=== PATIENT | female | born 1965 | race Caucasian/White ===

== ENCOUNTER 2020-09-23 15:04 | Emergency (ER) | payer OTHER ==
[~2020-09-23] VITALS: Ht 182.9 cm; Wt 105.0 kg
[2020-09-23] MEDS ORDERED: METH54TA5 (15:19)
[2020-09-23] MEDS ORDERED: ROPI1TAB3 (15:19)
[2020-09-23] MEDS ORDERED: BUPR150T12 (15:19)
[2020-09-23] MEDS ORDERED: ARIP1TAB (15:19)
[2020-09-23] MEDS ORDERED: TOPI25TA10 (15:19)
[2020-09-23] MEDS ORDERED: CLON0.5T2 (15:19)
[2020-09-23] MEDS ORDERED: PROMETHAZINE INJ 25 MG/ML VIAL (J2550) IM ONE (16:35)
[2020-09-23] MEDS ORDERED: ACETAMINOPHEN 500 MG TAB PO ONE (16:35)
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
[2020-09-23] MEDS ORDERED: ISOVUE-370 76% 100ML VIAL As Ordered ONE (17:50)
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
[2020-09-23] MEDS ORDERED: PERCOCET 5MG/325MG TAB PO ONE (18:25)
--- NOTE | 2020-09-23 19:09 | REPVR ---
PROCEDURE INFORMATION: Exam: CT Angiography Neck With Contrast Exam date and time: 09/23/2020 5:48 PM Age: 55 years old Clinical indication: Condition or disease; Aneurysm, cerebral; Additional info: ? Aneurysm on noncontrast TECHNIQUE: Imaging protocol: Computed tomography angiography of the neck with contrast. 3D rendering (Not supervised by radiologist): MIP and/or 3D reconstructed images were created by the technologist. Radiation optimization: All CT scans at this facility use at least one of these dose optimization techniques: automated exposure control; mA and/or kV adjustment per patient size (includes targeted exams where dose is matched to clinical indication); or iterative reconstruction. Contrast material: ISOVUE 370; Contrast volume: 100 ml; Contrast route: INTRAVENOUS (IV); COMPARISON: CT Spine,cervical w/o contrast 09/23/2020 5:07 PM FINDINGS: Right common carotid artery: No stenosis. No dissection or occlusion. Right internal carotid artery: No stenosis of the extracranial segment. No dissection or occlusion. Right external carotid artery: No occlusion or stenosis of the origin. Right vertebral artery: No stenosis. No dissection or occlusion. Left common carotid artery: No stenosis. No dissection or occlusion. There is a tiny indentation at the base of the carotid bulb posterior margin which could be due to minimal web. Left internal carotid artery: No stenosis of the extracranial segment. No dissection or occlusion. Left external carotid artery: No occlusion or stenosis of the origin. Left vertebral artery: No stenosis. No dissection or occlusion. Thyroid/parathyroid: There is a 1.3 x 1.1 x 0.8 cm lesion with rim enhancement and hypodense center along the posteromedial margin the left lobe of the thyroid gland. Series 507, images 37 -41, series 508 images 25, 26. This could represent a parathyroid tumor or a lymph node among other etiologies. There is mild heterogeneity of the thyroid gland. Bones/joints: No acute fracture. Soft tissues: Normal. No significant soft tissue swelling. IMPRESSION: 1. No carotid stenoses. 2. There is a 1.3 x 1.1 x 0.8 cm lesion along the posteromedial margin of the left lobe of the thyroid gland which could represent a parathyroid tumor among other etiologies. COMMENTS: Consistent with the [employer]'s Incidental Findings Committee white paper (J Am Torrey Radiol 2015): In patients aged 35 years and older with an incidental thyroid nodule equal to or greater than 1.[address], MRI or extrathyroidal US, further evaluation with dedicated thyroid US is recommended for patients with normal life expectancy and without comorbidities. For smaller nodules without suspicious features, no further evaluation or follow up is recommended. REFERENCES: NASCET CRITERIA. The degree of internal carotid artery stenosis is based on NASCET criteria. Normal is no stenosis. Mild is less than 50% stenosis. Moderate is 50-69% stenosis. Severe is 70% to 99% stenosis. Total occlusion is no detectable patent lumen. Electronically signed by: Margaret Wayne On 09/23/2020 19:09:32 PM
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
[2020-09-23] MEDS ORDERED: KETO10TAB PO (20:17)
[2020-09-23 21:05] VITALS: BP 136/87
[2020-09-24] MEDS ORDERED: ZOFR4TAB16 PO (12:10)
== END 2020-09-23 21:08 | disposition home or self-care (01) ==
LOC: M ED 15:04 → EDBD 15:04 → M ED 21:08
DX: S06.0X0A Concussion without loss of consciousness, initial encounter (principal); S16.1XXA Strain of muscle, fascia and tendon at neck level, initial encounter; R22.1 Localized swelling, mass and lump, neck; V43.52XA Car driver injured in collision with other type car in traffic accident, initial encounter; Y92.9 Unspecified place or not applicable; Y93.9 Activity, unspecified; Y99.9 Unspecified external cause status; F41.9 Anxiety disorder, unspecified; F32.9 Major depressive disorder, single episode, unspecified; I65.22 Occlusion and stenosis of left carotid artery; M51.36 Other intervertebral disc degeneration, lumbar region; M25.78 Osteophyte, vertebrae; Z88.0 Allergy status to penicillin; Z88.1 Allergy status to other antibiotic agents
CPT/HCPCS: 70450; 70496; 70498; 72110; 72125; 80047; 96372; 99284; Q9967

== ENCOUNTER → 2020-09-30 | Outpatient (REF) | payer OTHER ==
[~2020-09-30] MED LIST: ARIP1TAB; BUPR150T12; CLON0.5T2; KETO10TAB PO; METH54TA5; ROPI1TAB3; TOPI25TA10; ZOFR4TAB16 PO
[2020-09-30 15:06] LABS: BASO # 0.1 10^3/uL (0.0-0.2); BASO % 0.7 % (0.0-1.0); HEMATOCRIT 43.8 % (36.0-47.0); HEMOGLOBIN 14.6 g/dl (12.0-15.5); LYMPH # 2.5 10^3/uL (1.5-5.0); LYMPH % 34.1 % (24.0-44.0); MEAN CORPUSCULAR HEMOGLOBIN 29.9 pg (27.0-33.0); MEAN CORPUSCULAR HGB CONC 33.3 g/dl (32.0-36.5); MEAN CORPUSCULAR VOLUME 89.8 fl (80.0-96.0); MONO # 0.4 10^3/uL (0.0-0.8); MONO % 5.3 % (2.0-8.0); NEUTROPHILS # 4.3 10^3/uL (1.5-8.5); NEUTROPHILS % 59.6 % (36.0-66.0); PLATELET COUNT, AUTOMATED 273 10^3/uL (150-450); RED BLOOD COUNT 4.88 10^6/uL (4.00-5.40); WHITE BLOOD COUNT 7.2 10^3/uL (4.0-10.0)
[2020-09-30 15:10] LABS: APPEARANCE, URINE CLEAR (CLEAR); BACTERIA, URINE AUTO NEGATIVE (NEGATIVE); BILIRUBIN, URINE AUTO NEGATIVE (NEGATIVE); BLOOD, URINE BLOOD NEGATIVE (NEGATIVE); COLOR, URINE STRAW (YELLOW); GLUCOSE, URINE (UA) AUTO NEGATIVE (NEGATIVE); KETONE, URINE AUTO NEGATIVE (NEGATIVE); LEUKOCYTE ESTERASE, URINE AUTO NEGATIVE (NEGATIVE); NITRITE, URINE AUTO NEGATIVE (NEGATIVE); PROTEIN, URINE AUTO NEGATIVE (NEGATIVE); RBC, URINE AUTO 0 /HPF (0-3); SPECIFIC GRAVITY URINE AUTO 1.008 (1.002-1.035); SQUAMOUS EPITHELIAL CELL UR AU 0 /HPF (0-6); UROBILINOGEN, URINE AUTO 0.2 mg/dL (0.0-2.0); WBC, URINE AUTO 0 /HPF (0-3)
[2020-09-30 15:22] LABS: ALBUMIN 4.3 GM/DL (3.2-5.2); BILIRUBIN,TOTAL 0.4 MG/DL (0.2-1.0); CALCIUM LEVEL 9.6 MG/DL (8.5-10.1); CREATININE FOR GFR 1.02 MG/DL (0.55-1.30); FREE T4 1.17 NG/DL (0.76-1.46); GLOMERULAR FILTRATION RATE 59.9 (>51); POTASSIUM SERUM 4.5 MEQ/L (3.5-5.1); THYROID STIMULATING HORMONE 3.28 uIU/ML (0.358-3.740); TOTAL PROTEIN 7.6 GM/DL (6.4-8.2)
== END ==
LOC: M SFHCADAM 11:59
PROVIDERS: ATTEND Physician Assistant Medical
DX: R42 Dizziness and giddiness (principal); R03.0 Elevated blood-pressure reading, without diagnosis of hypertension; R39.89 Other symptoms and signs involving the genitourinary system

== ENCOUNTER → 2020-10-11 | Outpatient (CLI) | payer MEDICARE ==
--- NOTE | 2020-10-11 16:52 | REP ---
INDICATION: NON TOXIC GOITER COMPARISON: None. TECHNIQUE: Escobar scale and color evaluation of the thyroid gland using the linear high frequency transducer. FINDINGS: Thyroid gland is mildly enlarged with normal contour. Right lobe measures 4.7 x 1.7 x 1.5 cm and includes 9 x 7 x 10 mm isoechoic midpole nodule, 8 x 6 x 8 mm and 10 x 4 x 6 mm isoechoic mid/lower pole nodules. Isthmus measures 1.9 mm in width. Left lobe measures 5.0 x 1.7 x 1.7 cm and includes 8 x 5 x 5 mm isoechoic lower pole nodule and 4 x 3 x 5 mm hypoechoic midpole nodule. IMPRESSION: Nonspecific indeterminate bilateral nodules all of which measure up to 10 mm maximal diameter. <Electronically signed by Yogi Bauman > 10/11/20 0653
== END ==
LOC: M RAD 15:42
PROVIDERS: ATTEND Otolaryngology
DX: E04.2 Nontoxic multinodular goiter (principal)

== ENCOUNTER → 2020-10-20 | Outpatient (CLI) | payer MEDICARE ==
[~2020-10-20] MED LIST changes: -ARIP1TAB; +ARIP1TAB PO; -BUPR150T12; +BUPR150T12 PO; -CLON0.5T2; +CLON0.5T2 PO; +FLON1SPR NARES; +LEVOTAB10 PO; +LIDOCAINE 1% MDV 20ML VIAL As Ordered ONE; -METH54TA5; +METH54TA5 PO; +ONDANSETRON 4 MG TAB PO ONE; -ROPI1TAB3; +ROPI1TAB3 PO; -TOPI25TA10; +TOPI25TA10 PO
[2020-10-20 13:45] VITALS: BP 128/90
--- NOTE | 2020-10-20 16:41 | REP ---
INDICATION: LT THYROID NODULE E04.1. COMPARISON: None. TECHNIQUE: The procedure was performed under the direct supervision of Dr. Escobar. The patient has a history of a 1.3 x 1.1 x 0.8 cm lesion along the posteromedial margin of the left lobe of the thyroid seen on a previous CT scan dated 09/23/2020. The risks and benefits of the procedure were explained to the patient and informed consent was obtained. The left thyroid nodule was localized using ultrasound guidance. The skin was prepped and draped in a sterile fashion. 1% lidocaine was used as a local anesthetic. Using ultrasound guidance 4 fine-needle aspirations were obtained using 25 gauge needles. The patient tolerated the procedure well and there were no immediate complications. After the appropriate amount to monitor convalescence the patient was discharged from the department. FINDINGS: None IMPRESSION: Ultrasound-guided left thyroid biopsy. <Electronically signed by Johny Art > 10/20/20 1527 <Electronically signed by Joshua Escobar > 10/20/20 [id number]
== END ==
LOC: M IRPRO 12:23
PROVIDERS: ATTEND Otolaryngology
DX: E04.1 Nontoxic single thyroid nodule (principal)

== ENCOUNTER 2020-11-06 15:43 | Emergency (ER) | payer OTHER, MEDICARE ==
[~2020-11-06] VITALS: Ht 182.9 cm; Wt 104.9 kg
[~2020-11-06 15:43] MED LIST changes: +ARIP10TA32 PO; -ARIP1TAB PO; -LIDOCAINE 1% MDV 20ML VIAL As Ordered ONE; -ONDANSETRON 4 MG TAB PO ONE
[2020-11-06] MEDS ORDERED: ASPIRIN 81 MG CHEW TABLET PO ONE (17:45)
[2020-11-06] MEDS ORDERED: KETOROLAC 30 MG/ML 1ML VIAL IV ONE (17:50)
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
[2020-11-06 18:30] LABS: BASO % 0.7 % (0.0-1.0); HEMATOCRIT 40.6 % (36.0-47.0); HEMOGLOBIN 13.3 g/dl (12.0-15.5); LYMPH # 1.6 10^3/uL (1.5-5.0); LYMPH % 30.2 % (24.0-44.0); MEAN CORPUSCULAR HEMOGLOBIN 29.5 pg (27.0-33.0); MEAN CORPUSCULAR HGB CONC 32.8 g/dl (32.0-36.5); MONO # 0.4 10^3/uL (0.0-0.8); MONO % 6.5 % (2.0-8.0); NEUTROPHILS # 3.4 10^3/uL (1.5-8.5); NEUTROPHILS % 62.4 % (36.0-66.0); PLATELET COUNT, AUTOMATED 240 10^3/uL (150-450); RED BLOOD COUNT 4.51 10^6/uL (4.00-5.40); WHITE BLOOD COUNT 5.4 10^3/uL (4.0-10.0)
[2020-11-06 18:42] LABS: INR 0.99; PARTIAL THROMBOPLASTIN TIME 28.1 SECONDS (24.2-38.5); PROTHROMBIN TIME 13.3 SECONDS (12.5-14.3)
[2020-11-06 18:52] LABS: ERYTHROCYTE SEDIMENTATION RATE 8 mm/hr (0-30)
[2020-11-06 18:56] LABS: ALT/SGPT 35 U/L (12-78); BILIRUBIN,DIRECT 0.1 MG/DL (0.0-0.2); BILIRUBIN,TOTAL 0.5 MG/DL (0.2-1.0); BLOOD UREA NITROGEN 22 MG/DL (7-18); CALCIUM LEVEL 8.7 MG/DL (8.5-10.1); CARBON DIOXIDE LEVEL 30 MEQ/L (21-32); CHLORIDE LEVEL 106 MEQ/L (98-107); CK-MB VALUE MASS 2.4 NG/ML (<3.6); CPK CREATINE PHOSPHOKINASE 138 U/L (26-192); CREATININE FOR GFR 1.05 MG/DL (0.55-1.30); GLOMERULAR FILTRATION RATE 57.9 (>51); GLUCOSE, FASTING 89 MG/DL (70-100); MB/CK RELATIVE INDEX 1.74 (< OR =4); POTASSIUM SERUM 3.5 MEQ/L (3.5-5.1); SODIUM LEVEL 139 MEQ/L (136-145); TOTAL PROTEIN 7.2 GM/DL (6.4-8.2); TROPONIN I < 0.02 NG/ML (< 0.10)
[2020-11-06] MEDS ORDERED: ACET-683 PO ×2 (19:29→19:31)
[2020-11-06] MEDS ORDERED: GABA-283 PO ×2 (19:29→19:31)
[2020-11-06 19:36] VITALS: BP 108/70
--- NOTE | 2020-11-07 14:26 | ECGEPIP ---
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
== END 2020-11-06 19:42 | disposition home or self-care (01) ==
LOC: M ED 15:43
DX: M54.31 Sciatica, right side (principal); G89.29 Other chronic pain; M50.30 Other cervical disc degeneration, unspecified cervical region; F41.9 Anxiety disorder, unspecified; F33.9 Major depressive disorder, recurrent, unspecified; Z79.899 Other long term (current) drug therapy; Z88.0 Allergy status to penicillin; Z88.2 Allergy status to sulfonamides; Z88.1 Allergy status to other antibiotic agents; Z86.69 Personal history of other diseases of the nervous system and sense organs; Z91.048 Other nonmedicinal substance allergy status; Z87.828 Personal history of other (healed) physical injury and trauma; Z98.890 Other specified postprocedural states
CPT/HCPCS: 70450; 71046; 80048; 80076; 82550; 82553; 84484; 85025; 85610; 85652; 85730; 86140; 93005; 96374; 99284; J1885

== ENCOUNTER → 2020-11-10 | Outpatient (CLI) | payer MEDICARE ==
[~2020-11-10] MED LIST changes: +ACET-683 PO; +GABA-283 PO
--- NOTE | 2020-11-16 15:57 | REPMRS ---
Patient History The patient states she has not had a clinical breast exam in over a year. Patient is postmenopausal and had first child at age 31. Family history of breast cancer at age 42 in sister. No Hormone Replacement Therapy Covid vaccine 06/24/20 Right arm. 09/21/20 right arm. Patient states no breast complaints today. Patient has signed MRS History Sheet. Digital Woman Screen Mammo: November 10, 2020 - Exam #: [id number] Bilateral CC and MLO view(s) were taken. Technologist: RT Grupo Prior study comparison: October 22, 2019, bilateral digital mammo screening bilat, performed at [facility]. October 16, 2018, bilateral digital mammo screening bilat, performed at [facility]. September 14, 2017, bilateral digital mammo screening bilat, performed at [facility]. FINDINGS: The breast tissue is heterogeneously dense. This may lower the sensitivity of mammography. The Volpara volumetric breast density category is: C. There is a moderate amount of heterogeneously dense fibroglandular tissue which is fairly symmetric. There is no interval development of dominant mass, architectural distortion, or grouped microcalcification typical of malignancy. There has been no change in the appearance of the mammogram from the prior studies. 3-D tomosynthesis shows no additional findings. Assessment: BI-RADS/ACR category 1 mammogram. Negative Mammogram. Recommendation Routine screening mammogram of both breasts in 1 year (for women over age 40). This patient's [facility] Lifetime Breast Cancer RIsk is estimated at 20.0 %. Patients whose estimated lifetime breast cancer risk assessment is greater than 20% merit annual screening breast MRI scanning in addition to annual mammography. This mammogram was interpreted with the aid of an FDA-approved computer-aided dectection system. Electronically Signed By: Chris Chambers MD 11/16/20 [id number]
== END ==
LOC: M WHC 06:51
PROVIDERS: ATTEND Physician Assistant Medical
DX: Z12.31 Encounter for screening mammogram for malignant neoplasm of breast (principal); Z80.3 Family history of malignant neoplasm of breast

== ENCOUNTER → 2020-11-30 | Outpatient (REF) | payer MEDICARE, OTHER | LOC: M SFHCADAM 09:01 | PROVIDERS: ATTEND Family Medicine | DX: R30.0 Dysuria (principal) ==

== ENCOUNTER → 2020-12-06 | Outpatient (REF) | payer MEDICARE, OTHER ==
[2020-12-06 18:58] LABS: APPEARANCE, URINE HAZY (CLEAR); BACTERIA, URINE AUTO NEGATIVE (NEGATIVE); BILIRUBIN, URINE AUTO NEGATIVE (NEGATIVE); BLOOD, URINE BLOOD NEGATIVE (NEGATIVE); CALCIUM OXALATE CRYSTALS MODERATE; COLOR, URINE YELLOW (YELLOW); GLUCOSE, URINE (UA) AUTO NEGATIVE (NEGATIVE); KETONE, URINE AUTO TRACE mg/dL (NEGATIVE); LEUKOCYTE ESTERASE, URINE AUTO 2+ (NEGATIVE); MUCUS, URINE SMALL (NEGATIVE); NITRITE, URINE AUTO NEGATIVE (NEGATIVE); PROTEIN, URINE AUTO NEGATIVE (NEGATIVE); RBC, URINE AUTO 5 /HPF (0-3); SPECIFIC GRAVITY URINE AUTO 1.021 (1.002-1.035); SQUAMOUS EPITHELIAL CELL UR AU 9 /HPF (0-6); UROBILINOGEN, URINE AUTO 0.2 mg/dL (0.0-2.0); WBC, URINE AUTO 6 /HPF (0-3)
== END ==
LOC: M SFHCADAM 15:04
PROVIDERS: ATTEND Physician Assistant Medical
DX: N89.8 Other specified noninflammatory disorders of vagina (principal); R30.0 Dysuria

== ENCOUNTER → 2021-02-28 | Outpatient (REF) | payer MEDICARE, OTHER ==
[2021-02-28 13:35] LABS: ALBUMIN 3.8 GM/DL (3.2-5.2); BILIRUBIN,TOTAL 0.5 MG/DL (0.2-1.0); CALCIUM LEVEL 9.2 MG/DL (8.5-10.1); CREATININE FOR GFR 1.08 MG/DL (0.55-1.30); GLOMERULAR FILTRATION RATE 56.1 (>51); POTASSIUM SERUM 4.2 MEQ/L (3.5-5.1); THYROID STIMULATING HORMONE 1.93 uIU/ML (0.358-3.740); TOTAL PROTEIN 7.2 GM/DL (6.4-8.2)
[2021-02-28 13:36] LABS: PROLACTIN 3.9 NG/ML
[2021-02-28 14:03] LABS: HEMOGLOBIN A1c 5.4 %
== END ==
LOC: M LABDRWAD 12:25
DX: E88.89 Other specified metabolic disorders (principal); Z79.899 Other long term (current) drug therapy

== ENCOUNTER → 2021-04-05 | Outpatient (CLI) | payer MEDICARE ==
--- NOTE | 2021-04-05 14:56 | REP ---
INDICATION: THYROID NODULE. COMPARISON: 10/12/2019 TECHNIQUE: Real-time sonographic evaluation of the thyroid gland with Doppler FINDINGS: The right lobe of the thyroid gland measures 4.8 x 1.5 x 1.7 cm and left lobe measures 5.3 x 1.3 x 1.3 cm. The isthmus measures between 1 2 cm. Once again, there are multiple bilateral sub cm sized nodules. These are all stable. Other much smaller nodules are also identified. These are too numerous to count or individually assess. IMPRESSION: No change. Indeterminate nodules. <Electronically signed by Parmjit Francois > 04/05/21 [id number]
== END ==
LOC: M RAD 13:01
PROVIDERS: ATTEND Otolaryngology
DX: E04.2 Nontoxic multinodular goiter (principal)

== ENCOUNTER → 2021-04-28 | Outpatient (CLI) | payer MEDICARE ==
[~2021-04-28] MED LIST changes: +E-Z-GAS II EFFERVESCENT PACKET (SODIUM BICARB./CITRIC ACID/SIMETHICONE) As Ordered ONE; +E-Z-HD 98% w/w 340GM SUSP BTL As Ordered ONE; +E-Z-PAQUE 96% w/w SUSP 176GM BTL As Ordered ONE; +ISOVUE-370 76% 100ML VIAL As Ordered ONE
--- NOTE | 2021-04-28 09:40 | REPVR ---
PROCEDURE INFORMATION: Exam: CT Neck With Contrast Exam date and time: 04/28/2021 9:06 AM Age: 55 years old Clinical indication: Dysphagia / difficulty swallowing TECHNIQUE: Imaging protocol: Computed tomography images of the neck with contrast. Radiation optimization: All CT scans at this facility use at least one of these dose optimization techniques: automated exposure control; mA and/or kV adjustment per patient size (includes targeted exams where dose is matched to clinical indication); or iterative reconstruction. Contrast material: ISOVUE 370; Contrast volume: 75 ml; Contrast route: INTRAVENOUS (IV); COMPARISON: 1. CT ANGIO NECK 09/23/2020 6:31 PM 2. Thyroid, ST head+neck US 04/05/2021 1:52:29 PM FINDINGS: Mastoid air cells: Mastoid air cells and middle ear cavities are well developed and well aerated. Paranasal sinuses: Visualized paranasal sinuses are clear. Nasopharynx: Unremarkable. Oropharynx: Unremarkable. No significant tonsillar enlargement. Hypopharynx: Unremarkable. Larynx: Unremarkable. Normal epiglottis. Retropharyngeal space: Unremarkable. Submandibular/Parotid glands: Normal. Glands are normal in size. Thyroid: There is a nodule within or along the posterior margin of the left lobe of the thyroid which is slightly smaller measuring approximately 12.5 mm x 12.7 mm x 8 mm previously and 10.7 mm x 9.3 mm x 6 mm currently. Remainder of thyroid gland is minimally inhomogeneous. Please see report of prior thyroid ultrasound. Lymph nodes: Unremarkable. No lymphadenopathy. Trachea: Visualized trachea is unremarkable. Lungs: Unremarkable as visualized. Bones/joints: No acute fracture. There are mild degenerative changes with disc height loss and mild marginal osteophytes at C5-C6. There is no evidence of spinal stenosis or neural foraminal narrowing. Vasculature: Carotid and vertebral arteries are widely patent. Soft tissues: Unremarkable. No significant soft tissue swelling. IMPRESSION: 1. No explanation for dysplasia based on this examination. Mucosal abnormalities are not evident on CT and recommend endoscopy if clinically indicated. 2. Smaller nodule within or along posterior margin of left thyroid gland. COMMENTS: Consistent with the [place]'s Incidental Findings Committee white paper (J Am Torrey Radiol 2015): In patients aged 35 years and older with an incidental thyroid nodule equal to or greater than 1.[address], MRI or extrathyroidal US, further evaluation with dedicated thyroid US is recommended for patients with normal life expectancy and without comorbidities. For smaller nodules without suspicious features, no further evaluation or follow up is recommended. Electronically signed by: Phyllis Woodward On 04/28/2021 09:40:13 AM
--- NOTE | 2021-04-28 18:18 | REP ---
INDICATION: DYSPHAGIA. COMPARISON: None. TECHNIQUE: This procedure was performed under the direct supervision of Dr. Escobar. Images were reviewed with Dr. Escobar. Liquid barium and gas producing granules were given in the erect position as well as liquid barium in the prone oblique positions in order to perform a double contrast esophagram examination. A combination of fluoroscopy, spot films and last image hold technology was utilized. 0.7 minutes of fluoro time was utilized for this procedure. FINDINGS: A single view PA chest x-ray is submitted as a market research associate film. The superior mediastinal structures are midline. The heart size is within normal limits. The lungs are clear. During the oral and pharyngeal stages of deglutition there is laryngeal penetration. Esophageal transport is prompt and efficient in there is no esophagitis or stricture or mucosal ring. There is a sliding-type hiatal hernia. There is gastroesophageal reflux demonstrated to above the level of the nidia. IMPRESSION: 1. Laryngeal penetration. 2. There is a sliding-type hiatal hernia. There is gastroesophageal reflux demonstrated to above the level of the nidia. <Electronically signed by Johny Art > 04/28/21 [id number] <Electronically signed by Joshua Escobar > 04/28/21 [id number]
== END ==
LOC: M RAD 08:20
PROVIDERS: ATTEND Otolaryngology
DX: R13.10 Dysphagia, unspecified (principal); E04.1 Nontoxic single thyroid nodule; K44.9 Diaphragmatic hernia without obstruction or gangrene; K21.9 Gastro-esophageal reflux disease without esophagitis
CPT/HCPCS: 70491; 74220; Q9967

== ENCOUNTER → 2021-08-11 | Outpatient (CLI) | payer MEDICARE ==
[~2021-08-11] MED LIST changes: -E-Z-GAS II EFFERVESCENT PACKET (SODIUM BICARB./CITRIC ACID/SIMETHICONE) As Ordered ONE; -E-Z-HD 98% w/w 340GM SUSP BTL As Ordered ONE; -E-Z-PAQUE 96% w/w SUSP 176GM BTL As Ordered ONE; -ISOVUE-370 76% 100ML VIAL As Ordered ONE
[2021-08-11 12:47] LABS: HEMATOCRIT 40.1 % (36.0-47.0); HEMOGLOBIN 13.6 g/dl (12.0-15.5); MEAN CORPUSCULAR HEMOGLOBIN 29.5 pg (27.0-33.0); MEAN CORPUSCULAR HGB CONC 33.9 g/dl (32.0-36.5); PLATELET COUNT, AUTOMATED 219 10^3/uL (150-450); RED BLOOD COUNT 4.61 10^6/uL (4.00-5.40); WHITE BLOOD COUNT 4.7 10^3/uL (4.0-10.0)
[2021-08-11 12:58] LABS: APPEARANCE, URINE HAZY (CLEAR); BACTERIA, URINE AUTO 1+ (NEGATIVE); BILIRUBIN, URINE AUTO NEGATIVE (NEGATIVE); BLOOD, URINE BLOOD NEGATIVE (NEGATIVE); COLOR, URINE YELLOW (YELLOW); GLUCOSE, URINE (UA) AUTO NEGATIVE (NEGATIVE); KETONE, URINE AUTO NEGATIVE (NEGATIVE); LEUKOCYTE ESTERASE, URINE AUTO NEGATIVE (NEGATIVE); NITRITE, URINE AUTO NEGATIVE (NEGATIVE); PROTEIN, URINE AUTO NEGATIVE (NEGATIVE); RBC, URINE AUTO 1 /HPF (0-3); SPECIFIC GRAVITY URINE AUTO 1.012 (1.002-1.035); SQUAMOUS EPITHELIAL CELL UR AU 2 /HPF (0-6); UROBILINOGEN, URINE AUTO 0.2 mg/dL (0.0-2.0); WBC, URINE AUTO 1 /HPF (0-3)
[2021-08-11 13:12] LABS: HEMOGLOBIN A1c 5.6 %
[2021-08-11 13:27] LABS: BILIRUBIN,DIRECT 0.1 MG/DL (0.0-0.2); BILIRUBIN,TOTAL 0.5 MG/DL (0.2-1.0); CREATININE FOR GFR 1.07 MG/DL (0.55-1.30); GLOMERULAR FILTRATION RATE 56.5 (>51); POTASSIUM SERUM 4.3 MEQ/L (3.5-5.1); THYROID STIMULATING HORMONE 2.4 uIU/ML (0.358-3.740); TOTAL 25(OH) VITAMIN D 52.2 NG/ML (30.0-100.0); TOTAL PROTEIN 7.1 GM/DL (6.4-8.2)
== END ==
LOC: M ADAMS 10:36
PROVIDERS: ATTEND Psychologist
DX: Z51.81 Encounter for therapeutic drug level monitoring (principal); Z79.899 Other long term (current) drug therapy; E88.89 Other specified metabolic disorders

== ENCOUNTER 2021-09-23 14:37 | Emergency (ER) | payer MEDICARE ==
[2021-09-23] MEDS ORDERED: OMEP-173 (14:48)
[2021-09-23] MEDS ORDERED: FLUTISP (14:48)
[2021-09-23] MEDS ORDERED: ONDA-83 (14:48)
[2021-09-23] MEDS ORDERED: IBUP80TA (14:48)
[2021-09-23 16:45] LABS: BASO # 0.1 10^3/uL (0.0-0.2); BASO % 0.8 % (0.0-1.0); EOS # 0.2 10^3/uL (0.0-0.5); EOS % 2.4 % (0.0-3.0); HEMATOCRIT 44.2 % (36.0-47.0); HEMOGLOBIN 14.7 g/dl (12.0-15.5); LYMPH % 27.9 % (24.0-44.0); MEAN CORPUSCULAR HEMOGLOBIN 29.8 pg (27.0-33.0); MEAN CORPUSCULAR HGB CONC 33.3 g/dl (32.0-36.5); MEAN CORPUSCULAR VOLUME 89.7 fl (80.0-96.0); MONO # 0.4 10^3/uL (0.0-0.8); MONO % 5.5 % (2.0-8.0); NEUTROPHILS # 4.5 10^3/uL (1.5-8.5); NEUTROPHILS % 63.1 % (36.0-66.0); PLATELET COUNT, AUTOMATED 246 10^3/uL (150-450); RED BLOOD COUNT 4.93 10^6/uL (4.00-5.40); WHITE BLOOD COUNT 7.1 10^3/uL (4.0-10.0)
[2021-09-23 17:21] LABS: ALBUMIN 4.2 GM/DL (3.2-5.2); BILIRUBIN,DIRECT 0.1 MG/DL (0.0-0.2); BILIRUBIN,TOTAL 0.5 MG/DL (0.2-1.0); TOTAL PROTEIN 7.5 GM/DL (6.4-8.2)
[2021-09-23] MEDS ORDERED: ONDANSETRON 4MG/2ML VIAL IV ONE (18:05)
[2021-09-23] MEDS ORDERED: ACETAMINOPHEN 500 MG TAB PO ONE (18:15)
[2021-09-23] MEDS ORDERED: DICY10CA13 PO (19:01)
[2021-09-23] MEDS ORDERED: ONDA4TAB6 PO (19:01)
[2021-09-23 19:13] VITALS: BP 119/85
== END 2021-09-23 19:16 | disposition home or self-care (01) ==
LOC: M ED 14:37
DX: R11.2 Nausea with vomiting, unspecified (principal); R19.7 Diarrhea, unspecified; R10.9 Unspecified abdominal pain; F41.9 Anxiety disorder, unspecified; F32.9 Major depressive disorder, single episode, unspecified; Z79.899 Other long term (current) drug therapy; Z88.0 Allergy status to penicillin; Z88.2 Allergy status to sulfonamides
CPT/HCPCS: 74176; 80047; 80076; 81001; 83690; 85025; 87086; 96374; 99283; J2405

== ENCOUNTER → 2021-12-12 | Outpatient (CLI) | payer MEDICARE ==
[~2021-12-12] MED LIST changes: +DICY10CA13 PO; +FLUTISP; +IBUP80TA; +OMEP-173; +ONDA-83; +ONDA4TAB6 PO
== END ==
LOC: M LAB 10:51
DX: M25.551 Pain in right hip (principal); M25.552 Pain in left hip

== ENCOUNTER → 2024-04-01 | Outpatient (CLI) | payer MEDICARE, OTHER ==
[~2024-04-01] MED LIST changes: -ARIP10TA32 PO; +ARIP10TA63 PO; +DICY-61 PO; -DICY10CA13 PO; -GABA-283 PO; +GABA-284 PO; +ONDA-282 PO; -ONDA4TAB6 PO; -ROPI1TAB3 PO; +ROPI1TAB73 PO
== END ==
LOC: M RAD 16:35
PROVIDERS: ATTEND Nurse Practitioner Family
DX: M25.552 Pain in left hip (principal); M16.12 Unilateral primary osteoarthritis, left hip

== ENCOUNTER 2024-04-12 02:17 | Emergency (ER) | payer OTHER ==
[~2024-04-12] VITALS: Ht 182.9 cm; Wt 104.8 kg
[2024-04-12] MEDS: ONDANSETRON 4MG 2ML VIAL IV ONE ×2 (03:09→05:11)
[2024-04-12] MEDS: MORPHINE 4 MG/ML 1ML VIAL IV ONE (03:10)
[2024-04-12] MEDS: NS 1,000 ML IV ONE (03:32)
[2024-04-12 04:05] LABS: BASO % 0.2 % (0.0-1.0); EOS % 0.1 % (0.0-3.0); HEMATOCRIT 45.3 % (36.0-47.0); HEMOGLOBIN 15.4 g/dl (12.0-15.5); LYMPH # 0.5 10^3/uL (1.5-5.0); LYMPH % 4.1 % (24.0-44.0); MEAN CORPUSCULAR HEMOGLOBIN 30.4 pg (27.0-33.0); MEAN CORPUSCULAR VOLUME 89.3 fl (80.0-96.0); MONO # 0.4 10^3/uL (0.0-0.8); MONO % 3.2 % (2.0-8.0); NEUTROPHILS # 10.9 10^3/uL (1.5-8.5); NEUTROPHILS % 92.3 % (36.0-66.0); PLATELET COUNT, AUTOMATED 238 10^3/uL (150-450); RED BLOOD COUNT 5.07 10^6/uL (4.00-5.40); WHITE BLOOD COUNT 11.8 10^3/uL (4.0-10.0)
[2024-04-12 04:33] LABS: ALBUMIN 4.2 G/DL (3.2-5.2); BILIRUBIN,TOTAL 0.8 MG/DL (0.3-1.2); CREATININE FOR GFR 1.29 MG/DL (0.55-1.30); GLOMERULAR FILTRATION RATE 45.2 (>51); POTASSIUM SERUM 4.3 MMOL/L (3.5-5.1); TOTAL PROTEIN 8.1 G/DL (5.7-8.2)
[2024-04-12] MEDS ORDERED: ISOVUE-370 76% 100ML VIAL As Ordered ONE (04:46)
[2024-04-12] MEDS: KETOROLAC 30 MG/ML 1ML VIAL IV ONE (05:23)
[2024-04-12] MEDS ORDERED: CIPR-249 PO (06:07)
[2024-04-12] MEDS ORDERED: ONDA-282 PO (06:07)
[2024-04-12] MEDS ORDERED: KETO10TAB PO (06:07)
[2024-04-12] MEDS ORDERED: FLOM0.4C39 PO (06:07)
[2024-04-12] MEDS: TAMSULOSIN 0.4 MG CAP PO ONE (06:10)
[2024-04-12] MEDS: CIPROFLOXACIN 400 MG in IV 1 EA IV ONE (06:12)
[2024-04-12 06:56] VITALS: BP 132/84; TEMP 97.9; O2SAT 99
== END 2024-04-12 07:01 | disposition home or self-care (01) ==
LOC: M ED 02:17
DX: N13.2 Hydronephrosis with renal and ureteral calculous obstruction (principal); Z88.0 Allergy status to penicillin; Z88.1 Allergy status to other antibiotic agents; Z88.2 Allergy status to sulfonamides; Z79.899 Other long term (current) drug therapy
CPT/HCPCS: 74177; 80053; 81001; 83605; 83690; 85025; 87086; 99284; J0744; J1885; J2405; Q9967

== ENCOUNTER → 2024-12-04 | Outpatient (CLI) | payer MEDICARE ==
[~2024-12-04] MED LIST changes: +CIPR-249 PO; +LEVO75TAB PO; +TAMS-18 PO; +TOPI-256 PO; -TOPI25TA10 PO
== END ==
LOC: M ADAMS 07:49
PROVIDERS: ATTEND Family Medicine
DX: R07.1 Chest pain on breathing (principal)

== ENCOUNTER → 2024-12-04 | Outpatient (REF) | payer MEDICARE ==
[2024-12-04 13:16] LABS: BASO # 0.0 10^3/uL (0.0-0.2); BASO % 0.4 % (0.0-1.0); EOS # 0.1 10^3/uL (0.0-0.5); EOS % 1.5 % (0.0-3.0); LYMPH # 1.6 10^3/uL (1.5-5.0); LYMPH % 23.4 % (24.0-44.0); MONO # 0.5 10^3/uL (0.0-0.8); MONO % 6.6 % (2.0-8.0); NEUTROPHILS # 4.7 10^3/uL (1.5-8.5); NEUTROPHILS % 67.8 % (36.0-66.0); PLATELET COUNT, AUTOMATED 275 10^3/uL (150-450)
[2024-12-04 13:20] LABS: ALT/SGPT 40.0 U/L (7.0-40); AST/SGOT 31.0 U/L (<34); CALCIUM LEVEL 9.1 MG/DL (8.5-10.1); CARBON DIOXIDE LEVEL 26.0 MMOL/L (20-31); CHLORIDE LEVEL 104.0 MMOL/L (98-107); CREATININE FOR GFR 0.88 MG/DL (0.55-1.30); GLOMERULAR FILTRATION RATE 75.7 (>51); POTASSIUM SERUM 4.2 MMOL/L (3.5-5.1); SODIUM LEVEL 141.0 MMOL/L (136-145)
[2024-12-04 13:21] LABS: FREE T4 1.18 NG/DL (0.89-1.76)
== END ==
LOC: M SFHCADAM 07:40
PROVIDERS: ATTEND Family Medicine
DX: R07.1 Chest pain on breathing (principal); R60.0 Localized edema

== ENCOUNTER 2024-12-07 03:50 | Emergency (ER) | payer MEDICARE ==
[~2024-12-07] VITALS: Ht 182.9 cm; Wt 104.0 kg
[~2024-12-07 03:50] MED LIST changes: -LEVO75TAB PO
[2024-12-07 03:54] VITALS: TEMP 97
[2024-12-07 07:54] LABS: BASO # 0.0 10^3/uL (0.0-0.2); BASO % 0.6 % (0.0-1.0); EOS # 0.1 10^3/uL (0.0-0.5); EOS % 1.8 % (0.0-3.0); LYMPH # 1.8 10^3/uL (1.5-5.0); LYMPH % 25.0 % (24.0-44.0); MONO # 0.5 10^3/uL (0.0-0.8); MONO % 7.0 % (2.0-8.0); NEUTROPHILS # 4.7 10^3/uL (1.5-8.5); NEUTROPHILS % 65.3 % (36.0-66.0); PLATELET COUNT, AUTOMATED 208 10^3/uL (150-450)
[2024-12-07 07:58] LABS: KETONE, URINE AUTO RFX NEGATIVE (NEGATIVE); MUCUS, URINE RFX SMALL (NEGATIVE); NITRITE, URINE AUTO RFX NEGATIVE (NEGATIVE); RBC, URINE AUTO RFX 2 /HPF (0-3); SQUAM EPITHELIAL CELL UR AURFX 5 /HPF (0-6); WBC, URINE AUTO RFX 7 /HPF (0-3)
[2024-12-07 08:06] LABS: ERYTHROCYTE SEDIMENTATION RATE 22 mm/hr (0-30)
[2024-12-07] MEDS: KETOROLAC 30 MG/ML 1 ML VIAL IV ONE (08:06)
[2024-12-07] MEDS ORDERED: ISOVUE-370 76% 100 ML VIAL As Ordered ONE (08:18)
[2024-12-07 08:25] LABS: CK-MB VALUE MASS 1.4 NG/ML (<3.6)
[2024-12-07 08:26] LABS: CPK CREATINE PHOSPHOKINASE 62 U/L (34-145); MB/CK RELATIVE INDEX 2.25 (< OR =4)
[2024-12-07 09:28] LABS: C REACTIVE PROTEIN QUANTITATIV < 0.50 MG/DL (<1.0)
[2024-12-07 09:34] LABS: ALT/SGPT 31 U/L (7.0-40); AST/SGOT 23 U/L (<34); CK-MB VALUE MASS < 1.0 NG/ML (<3.6); CPK CREATINE PHOSPHOKINASE 41 U/L (34-145)
[2024-12-07 10:12] VITALS: BP 122/72
[2024-12-07 10:15] VITALS: O2SAT 99
[2024-12-07 10:21] LABS: LEUKOCYTE ESTERASE UR AUTO RFX 1+ (NEGATIVE)
[2024-12-07] MEDS ORDERED: LEVO75TAB PO (10:46)
== END 2024-12-07 11:02 | disposition home or self-care (01) ==
LOC: M ED 03:50
DX: U07.1 COVID-19 (principal); J12.82 Pneumonia due to coronavirus disease 2019; R91.1 Solitary pulmonary nodule; M71.21 Synovial cyst of popliteal space [Baker], right knee; F31.30 Bipolar disorder, current episode depressed, mild or moderate severity, unspecified; F41.9 Anxiety disorder, unspecified; Z79.899 Other long term (current) drug therapy; Z88.0 Allergy status to penicillin; Z88.2 Allergy status to sulfonamides
CPT/HCPCS: 71045; 71275; 80047; 80076; 81001; 82550; 82553; 83690; 83880; 84484; 85025; 85652; 86140; 87088; 87486; 87581; 87633; 87798; 93005; 93041; 93970; 94760; 96374; 99285; J1885; Q9967

== ENCOUNTER → 2025-01-29 | Outpatient (CLI) | payer MEDICARE ==
[~2025-01-29] MED LIST changes: +LEVO75TAB PO; +METH54TA13 PO; -METH54TA5 PO
== END ==
LOC: M RAD 11:22
PROVIDERS: ATTEND Physician Assistant Medical
DX: E04.2 Nontoxic multinodular goiter (principal)

== ENCOUNTER → 2025-01-30 | Outpatient (REF) ==
[2025-02-02 13:57] LABS: HERPES ZOSTER, VARICELLA IgG 20.6 S/CO (>=1.00); RUBEOLA IgG ANTIBODY 128.0 AU/mL (>16.49)
== END ==
LOC: M LAB 09:12
PROVIDERS: ATTEND Family Medicine
DX: Z01.89 Encounter for other specified special examinations (principal)

== ENCOUNTER → 2025-03-26 | Outpatient (CLI) | payer MEDICARE, OTHER | LOC: M ADAMS 10:34 | PROVIDERS: ATTEND Physician Assistant Medical | DX: M25.561 Pain in right knee (principal); M11.261 Other chondrocalcinosis, right knee ==

== ENCOUNTER → 2025-04-01 | Outpatient (REF) | payer OTHER ==
[2025-04-01 17:35] LABS: BASO # 0.0 10^3/uL (0.0-0.2); BASO % 0.5 % (0.0-1.0); EOS # 0.1 10^3/uL (0.0-0.5); EOS % 1.2 % (0.0-3.0); LYMPH # 2.0 10^3/uL (1.5-5.0); LYMPH % 24.7 % (24.0-44.0); MONO # 0.5 10^3/uL (0.0-0.8); MONO % 6.2 % (2.0-8.0); NEUTROPHILS # 5.5 10^3/uL (1.5-8.5); NEUTROPHILS % 67.3 % (36.0-66.0); PLATELET COUNT, AUTOMATED 264 10^3/uL (150-450)
[2025-04-01 17:39] LABS: ALT/SGPT 25.0 U/L (7.0-40); AST/SGOT 23.0 U/L (<34); CALCIUM LEVEL 9.7 MG/DL (8.5-10.1); CARBON DIOXIDE LEVEL 29.0 MMOL/L (20-31); CHLORIDE LEVEL 104.0 MMOL/L (98-107); CREATININE FOR GFR 1.06 MG/DL (0.55-1.30); GLOMERULAR FILTRATION RATE 60.5 (>51); POTASSIUM SERUM 4.6 MMOL/L (3.5-5.1); SODIUM LEVEL 142.0 MMOL/L (136-145)
== END ==
LOC: M SFHCADAM 15:44
PROVIDERS: ATTEND Physician Assistant
DX: R10.13 Epigastric pain (principal); R14.0 Abdominal distension (gaseous)

== ENCOUNTER → 2025-04-03 | Outpatient (CLI) | payer OTHER | LOC: M PLAIMG 08:58 | PROVIDERS: ATTEND Nurse Practitioner Family | DX: M25.552 Pain in left hip (principal); M25.562 Pain in left knee ==

== ENCOUNTER → 2025-05-18 | Outpatient (CLI) | payer OTHER | LOC: M PLAIMG 16:00 | PROVIDERS: ATTEND Nurse Practitioner Family | DX: M25.512 Pain in left shoulder (principal) ==